=== PATIENT | female | born 1990 | race African-American/Black ===

== ENCOUNTER 2018-02-18 23:07 | Inpatient (IN) | payer OTHER ==
[~2018-02-18] VITALS: Ht 165.1 cm; Wt 18.4 kg
[2018-02-18 23:53] LABS: HEMATOCRIT 39.2 % (36.0-46.0); HEMOGLOBIN 13.7 G/DL (11.9-15.5); MCHC 34.9 G/DL (30.0-36.0); MCV 88.7 FL (83-99); PLATELET COUNT 305 K/uL (156-360); RBC DIS.WIDTH-CV 13.2 % (11.8-14.6); RED BLOOD COUNT 4.42 M/uL (3.80-5.20); WHITE BLOOD COUNT 7.5 K/uL (4.1-10.2)
[2018-02-19 00:12] LABS: ALBUMIN 4.3 g/dL (3.2-4.8); CHLORIDE 104 mEq/L (99-109); POTASSIUM 3.5 mEq/L (3.7-5.4); SODIUM 140 mEq/L (136-147)
[2018-02-19 00:14] LABS: GLUCOSE 107 mg/dL (70-99)
[2018-02-19 00:15] LABS: TOTAL PROTEIN 7.4 g/dL (6.4-8.3)
[2018-02-19 00:16] LABS: TOTAL BILIRUBIN 0.4 mg/dL (0.0-1.0)
[2018-02-19 00:17] LABS: SERUM ETHYL ALCOHOL < 10 mg/dL
[2018-02-19 00:18] LABS: CREATININE 0.9 mg/dL (0.6-1.3)
[2018-02-19 00:19] LABS: ALKALINE PHOSPHATASE 57 IU/L (3-129); GFR ESTIMATE (CALCULATED) > 59 mL/min/
[2018-02-19 00:20] LABS: AST (GOT) 16 IU/L (2-34); UREA NITROGEN (BUN) 9 mg/dL (9-23)
[2018-02-19 00:21] LABS: SALICYLATE < 5.0 MG/DL (15-30)
[2018-02-19 00:22] LABS: ACETAMINOPHEN (TYLENOL) < 10 mcg/mL (10-30); ALT (GPT) 15 IU/L (3-49)
[2018-02-19 00:28] LABS: QUANTITATIVE HCG < 4.0 MIU/ML
[2018-02-19 07:51] LABS: CHLORIDE 111 MEQ/L (99-109); CREATININE 0.8 MG/DL (0.6-1.3); GFR ESTIMATE (CALCULATED) > 59 mL/min/; GLUCOSE 78 mg/dL (70-99); POTASSIUM 3.4 MEQ/L (3.7-5.4); SODIUM 142 MEQ/L (136-147); UREA NITROGEN (BUN) 7 mg/dL (9-23)
[2018-02-19 11:33] LABS: AMPHETAMINE NEGATIVE (500 ng/mL); BARBITURATES NEGATIVE (200 ng/mL); BENZODIAZEPINES PRESUMPTIVE POSITIVE (150 ng/mL); BUPRENORPHINE NEGATIVE (10 ng/mL); COCAINE NEGATIVE (150 ng/mL); METHADONE NEGATIVE (200 ng/mL); METHAMPHETAMINE NEGATIVE (500 ng/mL); OPIATES (MORPHINE) NEGATIVE (100 ng/mL); OXYCODONE NEGATIVE (100 ng/mL); PHENCYCLIDINE NEGATIVE (25 ng/mL); PROPOXYPHENE NEGATIVE (300 ng/mL); THC CANNABINOIDS PRESUMPTIVE POSITIVE (50 ng/mL); TRICYCLIC ANTIDEPRESSANTS NEGATIVE (300 ng/mL)
[2018-02-19 12:39] LABS: BENZODIAZEPINES, URINE SCREEN Negative (200 ng/mL)
[2018-02-19 13:06] VITALS: BP 128/85
[2018-02-19 13:17] VITALS: BP 128/75
[2018-02-19 16:12] VITALS: BP 134/64
[2018-02-20 07:57] VITALS: BP 110/64
[2018-02-20 16:31] VITALS: BP 100/56
[2018-02-21 09:30] VITALS: BP 114/77
[2018-02-21 16:58] VITALS: BP 125/77
[2018-02-22] MEDS ORDERED: GEODON40 MG PO (09:00)
[2018-02-22] MEDS ORDERED: INDERAL10 MG PO (09:00)
[2018-02-22] MEDS ORDERED: AMBIEN5 MG PO (09:00)
[2018-02-22 09:29] VITALS: BP 120/76
== END 2018-02-22 11:10 | disposition home or self-care (01) | DRG 885 ==
LOC: EDBD 23:07 → EME 23:07 → 1WEST 02-19 10:14 → EDOF 02-19 10:14 → ENRESERV 02-19 12:03 → 1WEST 02-19 13:01
PROVIDERS: Emergency Medicine
DX: F31.81 Bipolar II disorder (principal); F43.23 Adjustment disorder with mixed anxiety and depressed mood; T39.312A Poisoning by propionic acid derivatives, intentional self-harm, initial encounter; F10.20 Alcohol dependence, uncomplicated; Y90.0 Blood alcohol level of less than 20 mg/100 ml; F12.20 Cannabis dependence, uncomplicated; F17.210 Nicotine dependence, cigarettes, uncomplicated; F41.9 Anxiety disorder, unspecified; F63.9 Impulse disorder, unspecified; F90.9 Attention-deficit hyperactivity disorder, unspecified type; F60.9 Personality disorder, unspecified; R45.4 Irritability and anger; R45.1 Restlessness and agitation; F40.11 Social phobia, generalized; Z78.1 Physical restraint status; Z91.14 Patient's other noncompliance with medication regimen; Z81.8 Family history of other mental and behavioral disorders; Z81.4 Family history of other substance abuse and dependence
CPT/HCPCS: 80048; 80053; 84702; 84999; 85027; 90837; 93005; 99281; 99285; G0480; J1630; J2060; Q0177

== ENCOUNTER 2018-03-01 10:22 | Emergency (ER) | payer OTHER ==
[~2018-03-01] VITALS: Ht 152.4 cm; Wt 85.7 kg
[~2018-03-01 10:22] MED LIST: AMBIEN5 MG PO; GEODON40 MG PO; INDERAL10 MG PO
[2018-03-01 10:31] VITALS: BP 122/74
== END 2018-03-01 11:42 | disposition left against medical advice (07) ==
LOC: EME 10:22
DX: L29.9 Pruritus, unspecified (principal); R20.8 Other disturbances of skin sensation; Z53.21 Procedure and treatment not carried out due to patient leaving prior to being seen by health care provider